=== PATIENT | male | born 1975 | race Caucasian/White ===

== ENCOUNTER 2024-03-29 16:34 | Emergency (ER) | payer BC, SELFPAY ==
[2024-03-29 16:42] VITALS: BP 188/117; PULSE 111; RESP 18; TEMP 36.6; O2SAT 99; BMI 24.8
--- NOTE | 2024-03-29 16:58 | CRLHL7_ITS ---
For Patients: As a result of the Century Cures Act, medical imaging exams and procedure reports are released immediately into your electronic medical record. You may view this report before your referring provider. If you have questions, please contact your health care provider. INDICATION: Tripped and fell 3 days ago, nose swelling TECHNIQUE: CT of the head was performed without IV contrast. COMPARISON: None. FINDINGS: Parenchyma: No acute hemorrhage, infarction, or mass. Ventricles and extra-axial spaces: Appropriate for age. Visualized paranasal sinuses: Moderate mucosal thickening of the right maxillary sinus. Mastoid air cells: Clear. Bones: Mildly comminuted and moderately displaced right nasal bone fracture. Additional comment: Moderate soft tissue swelling overlying the nose. IMPRESSION: 1. No acute intracranial abnormality. 2. Mildly comminuted and moderately displaced right nasal bone fracture. Please note that all CT scans at this facility use dose modulation, iterative reconstruction, and/or weight-based dosing when appropriate to reduce radiation dose to as low as reasonably achievable. Dictated by James Goodson MD @ 03/29/2024 6:00:47 PM (Electronically Signed)
--- NOTE | 2024-03-29 16:58 | CRLHL7_ITS ---
For Patients: As a result of the Cures Act, medical imaging exams and procedure reports are released immediately into your electronic medical record. You may view this report before your referring provider. If you have questions, please contact your health care provider. TECHNIQUE: Multiplanar CT examination of the cervical spine was performed without the use of intravenous contrast. INDICATION: Neck pain. Trauma. COMPARISON: None. FINDINGS: Normal cervical lordosis. No craniocervical dissociation. The vertebral body heights are maintained. No acute fractures or traumatic subluxation. The odontoid process is intact. Mild multilevel degenerative disc disease. Small posterior disc osteophyte complex C5-6 results in mild canal stenosis. Multilevel facet degeneration and uncovertebral arthropathy without significant neural foraminal stenosis at any cervical spine level. No large abnormal identified. No significant prevertebral soft tissue edema. The visualized lung apices are clear. The thyroid gland is unremarkable. IMPRESSION: No acute fracture or traumatic subluxation of the cervical spine. Please note that all CT scans at this facility use dose modulation, iterative reconstruction, and/or weight-based dosing when appropriate to reduce radiation dose to as low as reasonably achievable. Dictated by Kimo Aragon MD @ 03/29/2024 6:05:36 PM (Electronically Signed)
--- NOTE | 2024-03-29 17:20 | ED.FALL ---
HPI - Fall General Date Seen: 03/29/24 Chief Complaint: Fall/Minor Trauma Stated Complaint: fell on Wednesday, hit head Time Seen by Provider: 03/29/24 16:47 Source: patient Mode of arrival: ambulatory Limitations: no limitations History of Present Illness HPI Narrative: Patient is a 48-year-old male presenting to the emergency department for a fall. He states 3 days ago he was playing driveway with kids when he tripped and fell landing face 1st onto the asphalt. He believes he knocked himself unconscious for a short amount of time. He is had continued swelling to his does show wait to urgent care today for evaluation and they checked his blood pressure and noted it was elevated and considering his fall recommended he come to emergency department for imaging. Is having some mild nose pain but otherwise no other concerns. Denies pain with eye movement, vision changes, headache, lightheadedness, dizziness, chest pain, shortness of breath, nausea, headache, paresthesias. No other concerns noted. Related Data Home Medications ?Medication ?Instructions ?Recorded ?Confirmed cyanocobalamin (vitamin B-12) 1,000 mcg PO DAILY 03/29/24 03/29/24 1,000 mcg tablet folic acid 1 mg tablet 1 mg PO DAILY 03/29/24 03/29/24 losartan 100 mg tablet 100 mg PO DAILY 03/29/24 03/29/24 Allergies Allergy/AdvReac Type Severity Reaction Status Date / Time No Known Drug Allergies Allergy Verified 03/29/24 16:13 Review of Systems Status of ROS: Reports: 10 or more systems reviewed and unremarkable except as noted in History and below PFSH PFS Social History Smoking Status: Current every day smoker Do you use any of these nicotine containing products: None How often do you have a drink containing alcohol: 4 or more times a week How many standard drinks containing alcohol do you have on a typical day: 1 or 2 AUDIT-C Alcohol total score: 4 Non-prescribed substance use: marijuana (any form) Exam Narrative: Exam Narrative: Const: Well-nourished, Well-developed, in mild distress Eyes: PERRL, no conjunctival injection, and symmetrical lids HENT: Atraumatic external nose and ears. Moist mucous membranes. No palpable skull fractures, no hematoma noted in the nasal septum. Some mild bruising around his eyes. Neck: Symmetric, trachea midline, No thyromegaly. CVS: RRR, No murmurs or gallops. Peripheral pulses 2+ and equal in all extremities RESP: Unlabored respiratory effort. Clear to auscultation bilaterally. GI: Nontender/Nondistended, No rebound or guarding. MSK:Extremities w/o deformity, Normal Active ROM, no midline neck tenderness, full range of motion of the neck Skin: Warm, Dry. Multiple healed scabs on his forehead and nasal bridge Neuro: Normal Muscle tone, No focal neurological deficits. Psych: Awake, Alert, & Oriented x3. Appropriate mood and affect. Const: Vital Signs, click to edit/add: Vital Signs - 24 hr 03/29/24 16:42 03/29/24 18:08 Temperature 97.9 F 98.3 F Pulse Rate [Pulse Oximeter] 111 H 93 Respiratory Rate 18 18 Blood Pressure [Ri ght Upper Arm] 188/117 H 169/111 H Pulse Oximetry 99 96 Oxygen Delivery Me thod Room Air Room Air Course Vital Signs Vital signs: Initial Vital Signs Temperature 97.9 F 03/29/24 16:42 Temperature Source Temporal Artery Scan 03/29/24 16:42 Pulse Rate 111 H 03/29/24 16:42 Pulse Rhythm Regular 03/29/24 16:42 Respiratory Rate 18 03/29/24 16:42 Blood Pressure 188/117 H 03/29/24 16:42 Blood Pressure Mean 140 H 03/29/24 16:42 Blood Pressure Position Sitting 03/29/24 16:42 Pulse Oximetry 99 03/29/24 16:42 Oxygen Delivery Method Room Air 03/29/24 16:42 Vital Signs Temperature 97.9 F 03/29/24 16:42 Pulse Rate 111 H 03/29/24 16:42 Respiratory Rate 18 03/29/24 16:42 Blood Pressure 188/117 H 03/29/24 16:42 Pulse Oximetry 99 03/29/24 16:42 Oxygen Delivery Method Room Air 03/29/24 16:42 Temperature 98.3 F 03/29/24 18:08 Pulse Rate 93 03/29/24 18:08 Respiratory Rate 18 03/29/24 18:08 Blood Pressure 169/111 H 03/29/24 18:08 Pulse Oximetry 96 03/29/24 18:08 Oxygen Delivery Method Room Air 03/29/24 18:08 MDM - Fall MDM Narrative Medical decision making narrative: Patient is a 48-year-old male presenting after a fall. He is otherwise doing well at this time but I will CT scan his head and cervical spine. No septal hematoma seen. He is having hypertension and has a history of hypertension and does not have any chest pain, shortness of breath, altered mental status, blurred vision, or focal neurological deficit so I do not believe lab work is necessary at this time as it is asymptomatic hypertension. CT scans returned showing a nasal fracture moderately displaced she was expected. Of note I did me to order the CT scan of the facial bones also but considering he is not having any other facial pain other than the nose I do not believe repeat imaging specifically of this facial bones are necessary considering the fracture has been seen already. Patient will be discharged informed follow-up with ENT. Was given information on how to set up follow-up. He is agreeable to this plan. Imaging Data CT scan head: Attestation: I have reviewed the pertinent imaging results. Radiologist's impression: 1. No acute intracranial abnormality. 2. Mildly comminuted and moderately displaced right nasal bone fracture. Please note that all CT scans at this facility use dose modulation, iterative reconstruction, and/or weight-based dosing when appropriate to reduce radiation dose to as low as reasonably achievable. Dictated by James Goodson MD @ 03/29/2024 6:00:[address] scan cervical spine: Attestation: I have reviewed the pertinent imaging results. Radiologist's impression: No acute fracture or traumatic subluxation of the cervical spine. Please note that all CT scans at this facility use dose modulation, iterative reconstruction, and/or weight-based dosing when appropriate to reduce radiation dose to as low as reasonably achievable. Dictated by Kimo Aragon MD @ 03/29/2024 6:05:36 PM Discharge Plan Discharge Clinical Impression: Fracture of nasal bone Qualifiers: Encounter type: initial encounter Fracture type: closed Qualified Code(s): S02.2XXA - Fracture of nasal bones, initial encounter for closed fracture Patient Disposition: Home, Self-Care Condition: Stable Instructions: Nasal Fracture (ED) Additional Instructions: Follow-up with ENT in the next 6-10 days. I gave you information on hold of set up a follow-up appointment. Do not blow your nose until cleared by ENT. Return to emergency department for new or worsening symptoms Prescriptions: No Action losartan 100 mg tablet 100 mg PO DAILY folic acid 1 mg tablet 1 mg PO DAILY cyanocobalamin (vitamin B-12) 1,000 mcg tablet 1,000 mcg PO DAILY Follow Up/Referrals: Irma Young NP [Primary Care Provider] - Stand Alone Forms: [employer] Info Instructions
[2024-03-29 18:08] VITALS: BP 169/111; PULSE 93; RESP 18; TEMP 36.8; O2SAT 96
== END 2024-03-29 18:28 | disposition home or self-care (01) ==
PROVIDERS: Emergency Provider Student in an Organized Health Care Education/Training Program; PCP Nurse Practitioner Family
DX: S02.2XXA Fracture of nasal bones, initial encounter for closed fracture (principal); W01.0XXA Fall on same level from slipping, tripping and stumbling without subsequent striking against object, initial encounter; Y92.014 Private driveway to single-family (private) house as the place of occurrence of the external cause
CPT/HCPCS: 70450; 72125; 99282; 99283